=== PATIENT | female | born 1930 | race Caucasian/White ===

== ENCOUNTER → 2017-06-09 | Outpatient (CLI) | payer MEDICARE ==
[~2017-06-09] MED LIST: ALEN35 PO; ASPI81EC PO; CONEST.3 PO; CONEST.625 PO; DILT120 PO; EZET10 PO; HYDACE5 PO; NIAC500 PO; POTCHL20ER PO; RANI150 PO; RISE35 PO; SPIR25 PO
== END | disposition home or self-care (01) ==
LOC: LAB 14:17 → LAB SHORT 14:17
PROVIDERS: Obstetrics & Gynecology
DX: R87.622 Low grade squamous intraepithelial lesion on cytologic smear of vagina (LGSIL) (principal); R87.811 Vaginal high risk human papillomavirus (HPV) DNA test positive
CPT/HCPCS: 87624; 88142

== ENCOUNTER → 2017-07-06 | Outpatient (CLI) | payer MEDICARE ==
[2017-07-26 15:17] LABS: HPV 16 Negative (Negative); HPV 18 Negative (Negative); HPV OTHER HR TYPES Positive (Negative)
== END ==
LOC: LAB SHORT 16:41 → LAB 16:41
PROVIDERS: Obstetrics & Gynecology
DX: R87.811 Vaginal high risk human papillomavirus (HPV) DNA test positive (principal)
CPT/HCPCS: 87625

== ENCOUNTER → 2017-10-20 | Outpatient (CLI) | payer MEDICARE ==
[2017-10-21 15:04] LABS: Adenovirus F 40/41 Not Detected (NOT DETECT); Astrovirus Not Detected (NOT DETECT); Campylobacter Sp Not Detected (NOT DETECT); Cryptosporidium Not Detected (NOT DETECT); Cyclospora Cayetanensis Not Detected (NOT DETECT); E. Coli O157 Not Detected (NOT DETECT); Entamoeba Histolytica Not Detected (NOT DETECT); Enteroaggregative E. coli-EAEC Not Detected (NOT DETECT); Enterotoxigenic E. coli-ETEC Not Detected (NOT DETECT); Giardia Lamblia Not Detected (NOT DETECT); Norovirus GI/GII Not Detected (NOT DETECT); Plesiomonas Shigelloides Not Detected (NOT DETECT); Rotavirus A Not Detected (NOT DETECT); Salmonella Sp Not Detected (NOT DETECT); Sapovirus Not Detected (NOT DETECT); Shiga Toxin-prod E. coli-STEC Not Detected (NOT DETECT); Shigella/Enteroin E. coli-EIEC Not Detected (NOT DETECT); Vibrio Cholerae Not Detected (NOT DETECT); Vibrio Sp Not Detected (NOT DETECT); Yersinia Enterocolitica Not Detected (NOT DETECT)
[2017-10-21 18:03] LABS: Enteropathogenic E. coli-EPEC Detected (NOT DETECT)
== END ==
LOC: LAB 19:00 → LAB SHORT 19:00
PROVIDERS: Student in an Organized Health Care Education/Training Program
DX: R19.7 Diarrhea, unspecified (principal)
CPT/HCPCS: 87507

== ENCOUNTER → 2017-12-20 | Outpatient (CLI) | payer MEDICARE ==
[2017-12-22 18:07] LABS: HPV 16 Negative (Negative); HPV 18 Negative (Negative); HPV OTHER HR TYPES Positive (Negative)
== END | disposition home or self-care (01) ==
LOC: LAB SHORT 14:58 → LAB 14:58
PROVIDERS: Obstetrics & Gynecology
DX: R87.622 Low grade squamous intraepithelial lesion on cytologic smear of vagina (LGSIL) (principal); R87.811 Vaginal high risk human papillomavirus (HPV) DNA test positive
CPT/HCPCS: 87624; 88142

== ENCOUNTER → 2018-10-12 | Outpatient (CLI) | payer MEDICARE ==
[~2018-10-12] MED LIST changes: +ASPI81CH PO; -ASPI81EC PO; +ATOR40TA PO; +CALCIUM PO; +Citrucel500 MG PO; +ESTR2 PO; +HYDCOR2.5C PR; +Hair, Skin & N1 EACH PO; +IBUP400 PO; +IBUP600 PO; +Omeprazole20 M1 PO; +SENN187 PO; +SIME80CH PO; +TYLENOL ARTHRITIS PO
== END | disposition home or self-care (01) ==
LOC: LAB EV 13:50 → LAB SHORT 13:50
DX: N39.0 Urinary tract infection, site not specified (principal)
CPT/HCPCS: 87077; 87086; 87186

== ENCOUNTER 2019-03-12 00:51 | Emergency (ER) | payer MEDICARE ==
[~2019-03-12] VITALS: Ht 167.6 cm; Wt 59.0 kg
[2019-03-12 01:52] LABS: BASOPHILS ABSOLUTE AUTO 0.02 K/mm3 (0.00-0.23); BASOPHILS PERCENT AUTO 0 % (0-2); EOSINOPHILS ABSOLUTE AUTO 0.09 K/mm3 (0.00-0.68); EOSINOPHILS PERCENT AUTO 1 % (0-6); Hematocrit 36.1 % (33.0-51.0); Hemoglobin 11.5 g/dL (11.5-16.0); IMMATURE GRAN ABSOLUTE AUTO 0.03 K/mm3 (0.00-0.10); IMMATURE GRAN PERCENT AUTO 0 % (0-1); LYMPHOCYTES ABSOLUTE AUTO 1.05 K/mm3 (0.84-5.20); LYMPHOCYTES PERCENT AUTO 15 % (21-46); MONOCYTES ABSOLUTE AUTO 0.68 K/mm3 (0.16-1.47); MONOCYTES PERCENT AUTO 10 % (4-13); Mean Corpuscular HGB 28.8 pg (26.0-34.0); Mean Corpuscular HGB Conc 31.9 g/dL (31.5-36.5); Mean Corpuscular Volume 90 fL (80-100); Mean Platelet Volume 10.6 fL (9.1-12.4); NEUTROPHILS ABSOLUTE AUTO 5.31 K/mm3 (1.96-9.15); NEUTROPHILS PERCENT AUTO 74 % (41-73); Platelet Count 137 K/mm3 (150-400); RDW Coefficient Variation 13.4 % (11.7-14.2); RDW Standard Deviation 44.8 fL (35.1-46.3); White Blood Cell Count 7.18 K/mm3 (4.00-11.30)
[2019-03-12 02:06] LABS: Alanine Aminotransfer (ALT/SGP 34 U/L (12-78); Albumin, Blood 2.6 g/dL (3.4-5.0); Albumin/Globulin Ratio 0.9 (0.8-1.8); Alk Phos 48 U/L (50-136); Anion Gap 8 mmol/L (6-16); Aspartate Aminotrans (AST/SGOT 38 U/L (12-37); Bilirubin, Total 0.4 mg/dL (0.1-1.0); Blood Urea Nitrogen 33 mg/dL (8-24); Bun/Creatinine Ratio 45.5 (12.0-20.0); CO2, Blood 21 mmol/L (21-32); Calcium, Blood 8.1 mg/dL (8.5-10.1); Chloride, Blood 113 mmol/L (98-108); Creatinine, Blood 0.73 mg/dL (0.40-1.00); Glomerular Filtration Rate >60 (60-); Glucose, Blood 117 mg/dL (70-99); Potassium, Blood 3.4 mmol/L (3.5-5.5); Sodium, Blood 142 mmol/L (136-145); Total Protein, Blood 5.6 g/dL (6.4-8.2); Troponin I <0.015 ng/mL (0.000-0.040)
== END 2019-03-12 04:35 | disposition home or self-care (01) ==
LOC: ER 00:51
PROVIDERS: Emergency Medicine
DX: R07.9 Chest pain, unspecified (principal); I10 Essential (primary) hypertension; E78.5 Hyperlipidemia, unspecified; Z91.048 Other nonmedicinal substance allergy status; Z79.899 Other long term (current) drug therapy; Z79.82 Long term (current) use of aspirin
CPT/HCPCS: 36415; 71046; 80053; 84484; 85025; 93005; 93010; 96374; 99285-25; J2405

== ENCOUNTER → 2019-12-05 | Outpatient (CLI) | payer MEDICARE | END | disposition home or self-care (01) | LOC: LAB SHORT 15:08 → LAB 15:08 | DX: K21.00 Gastro-esophageal reflux disease with esophagitis, without bleeding (principal); R12 Heartburn | CPT/HCPCS: 87338 ==

== ENCOUNTER 2020-06-27 20:27 | Inpatient (IN) | payer MEDICARE ==
[~2020-06-27] VITALS: Ht 157.5 cm; Wt 56.6 kg
[~2020-06-27 20:27] MED LIST changes: +ACET325 PO; +Amoxicillin500 MG PO; +BISA10S PR; +CALTRATE 600+D1 EAC1 PO; +CRANBERRY500 M1 PO; +DOCU100 PO; +ELIQUIS5 M2 PO; +LANS30EC PO; +LORA10ER; +ONDA4ODT MM; +PEPCID20 MG PO; +Prinivil10 MG PO; +THERA-D2000 UNIT PO
[2020-06-27 21:02] LABS: Source, Urine Clean Catch
[2020-06-27 21:07] LABS: Bilirubin, Urine Neg (Neg); Blood, Urine 5+ (Neg); Glucose Qualitative, Urine Neg (Neg); Ketones, Urine Neg (Neg); Leukocyte Esterase, Urine Neg (Neg); Nitrite, Urine Neg (Neg); Protein, Urine 1+ (Neg); Urobilinogen, Urine NORM (Normal)
[2020-06-27 21:07] LABS: BASOPHILS ABSOLUTE AUTO 0.02 K/mm3 (0.00-0.23); BASOPHILS PERCENT AUTO 0 % (0-2); EOSINOPHILS ABSOLUTE AUTO 0.09 K/mm3 (0.00-0.68); EOSINOPHILS PERCENT AUTO 1 % (0-6); Hematocrit 38.1 % (33.0-51.0); Hemoglobin 12.4 g/dL (11.5-16.0); IMMATURE GRAN ABSOLUTE AUTO 0.03 K/mm3 (0.00-0.10); IMMATURE GRAN PERCENT AUTO 0 % (0-1); LYMPHOCYTES ABSOLUTE AUTO 1.33 K/mm3 (0.84-5.20); LYMPHOCYTES PERCENT AUTO 17 % (21-46); MONOCYTES ABSOLUTE AUTO 1.01 K/mm3 (0.16-1.47); MONOCYTES PERCENT AUTO 13 % (4-13); Mean Corpuscular HGB 29.4 pg (26.0-34.0); Mean Corpuscular HGB Conc 32.5 g/dL (31.5-36.5); Mean Corpuscular Volume 90 fL (80-100); Mean Platelet Volume 10.7 fL (9.1-12.4); NEUTROPHILS ABSOLUTE AUTO 5.38 K/mm3 (1.96-9.15); NEUTROPHILS PERCENT AUTO 69 % (41-73); Platelet Count 208 K/mm3 (150-400); RDW Coefficient Variation 13.7 % (11.7-14.2); RDW Standard Deviation 45.3 fL (35.1-46.3); Red Blood Cell Count 4.22 M/mm3 (3.80-5.20); White Blood Cell Count 7.86 K/mm3 (4.00-11.30)
[2020-06-27 21:12] LABS: Appearance, Urine Hazy (Clear); Color, Urine Pale Yellow (P-Yellow)
[2020-06-27 21:15] LABS: Bacteria Mod /hpf; Red Blood Cells, Urine 25-50 /hpf (0-2); Squamous Epithelial Cells Few /hpf (Few); White Blood Cells, Urine 0-2 /hpf (0-5)
[2020-06-27 21:21] LABS: Alanine Aminotransfer (ALT/SGP 16 U/L (12-78); Albumin, Blood 2.9 g/dL (3.4-5.0); Albumin/Globulin Ratio 0.6 (0.8-1.8); Alk Phos 63 U/L (50-136); Anion Gap 5 mmol/L (6-16); Aspartate Aminotrans (AST/SGOT 18 U/L (12-37); Bilirubin, Total 0.3 mg/dL (0.1-1.0); Blood Urea Nitrogen 46 mg/dL (8-24); CO2, Blood 22 mmol/L (21-32); Calcium, Blood 10.5 mg/dL (8.5-10.1); Chloride, Blood 107 mmol/L (98-108); Creatinine, Blood 1.21 mg/dL (0.40-1.00); Globulin, Blood 4.6 g/dL (2.2-4.0); Glomerular Filtration Rate 45 (60-); Glucose, Blood 124 mg/dL (70-99); Magnesium, Blood 1.7 mg/dL (1.6-2.4); Potassium, Blood 4.6 mmol/L (3.5-5.5); Sodium, Blood 134 mmol/L (136-145); Total Protein, Blood 7.5 g/dL (6.4-8.2); Troponin I <0.015 ng/mL (0.000-0.040)
--- NOTE | 2020-06-28 06:41 | NUR ---
SHIFT SUMMARY NEW ER ADMIT THIS SHIFT (50), NO ACUTE CHANGES SINCE ASSUMING CARE, A&O, XFER'D W/ST BY ASSIST BETWEEN GURNEY, BEDSIDE COMODE & BED W/MINIMAL ASSIST. SLEPT T/O THE NIGHT & SLEEPING AT THIS TIME, CALL LIGHT IN REACH, WILL CONT TO MONITOR UNTIL REPORT GIVEN TO DAY RN.
[2020-06-28 09:15] LABS: BASOPHILS ABSOLUTE AUTO 0.01 K/mm3 (0.00-0.23); BASOPHILS PERCENT AUTO 0 % (0-2); EOSINOPHILS ABSOLUTE AUTO 0.06 K/mm3 (0.00-0.68); EOSINOPHILS PERCENT AUTO 1 % (0-6); Hematocrit 33.2 % (33.0-51.0); Hemoglobin 10.9 g/dL (11.5-16.0); IMMATURE GRAN ABSOLUTE AUTO 0.03 K/mm3 (0.00-0.10); IMMATURE GRAN PERCENT AUTO 0 % (0-1); LYMPHOCYTES ABSOLUTE AUTO 1.27 K/mm3 (0.84-5.20); LYMPHOCYTES PERCENT AUTO 18 % (21-46); MONOCYTES ABSOLUTE AUTO 1.01 K/mm3 (0.16-1.47); MONOCYTES PERCENT AUTO 14 % (4-13); Mean Corpuscular HGB 29.9 pg (26.0-34.0); Mean Corpuscular HGB Conc 32.8 g/dL (31.5-36.5); Mean Corpuscular Volume 91 fL (80-100); Mean Platelet Volume 10.6 fL (9.1-12.4); NEUTROPHILS ABSOLUTE AUTO 4.79 K/mm3 (1.96-9.15); NEUTROPHILS PERCENT AUTO 67 % (41-73); Platelet Count 175 K/mm3 (150-400); RDW Coefficient Variation 13.7 % (11.7-14.2); Red Blood Cell Count 3.65 M/mm3 (3.80-5.20); White Blood Cell Count 7.17 K/mm3 (4.00-11.30)
[2020-06-28 09:34] LABS: Albumin, Blood 2.4 g/dL (3.4-5.0); Albumin/Globulin Ratio 0.6 (0.8-1.8); Bilirubin, Total 0.3 mg/dL (0.1-1.0); Bun/Creatinine Ratio 33.3 (12.0-20.0); Calcium, Blood 9.5 mg/dL (8.5-10.1); Creatinine, Blood 1.02 mg/dL (0.40-1.00); Potassium, Blood 4.3 mmol/L (3.5-5.5); Total Protein, Blood 6.4 g/dL (6.4-8.2)
--- NOTE | 2020-06-28 16:38 | NUR ---
PT AAOX4. PLEASANT AND COOPERATIVE WITH CARE. 1 ASSIST TO BSC. IV L AC SALINE LOCKED AFTER 1L NS. ENCOURAGED ORAL FLUIDS THROUGHOUD SHIFT. EDUCATED ON ADEQUATE HYDRATION. PT HAS LIGHT APPETITE, REPORTS THIS IS BASELINE. BM TODAY, ADEQUATE URINE OUTPUT. SKIN INTACT. PT REPORTS CHRONIC BL ARTHRITIC HAND PAIN THAT IS WELL CONTROLLED WITH TYLENOL. RECENT RECTAL AND VAGINAL PROLAPSE PAIN WELL TOLERATED. RR ARE EVEN AND UNLABORED RA. LCTA ALL BUTLER. SON PRESENT AND SUPPORTIVE DURING VH. PT/SON HAVE NO QUESTIONS OR CONCERNS AT THIS TIME. WILL CONTINUE TO MONITOR UNTIL REPORT TO NOC RN
--- NOTE | 2020-06-29 03:18 | NUR ---
SHIFT SUMMARY RECEIVED IV ANTIBIOTICS ORDERED - SEE MAR FOR DETAILS. HAS BEEN RESTING QUIETLY WITH FEW INTERRUPTIONS SINCE HS. ASSISTED TO BEDSIDE COMMODE A FEW TIMES TO VOID. NO COMPLAINTS VOICED. CALL LIGHT IN REACH
[2020-06-29] MEDS ORDERED: LEVFLO500 PO (13:28)
[2020-06-29] MEDS ORDERED: VISBIOME 112.51 EACH PO (13:29)
[2020-06-29] MEDS ORDERED: FLUC150A PO (13:30)
--- NOTE | 2020-06-29 15:36 | NUR ---
SHIFT SUMMARY PT IS A&O, PLEASANT AND CO-OP. UP TO BTHRM WITH 1P SBA USING FWW. VSS; SEE CHART. PT UP TO CHAIR FOR MEALS. DR ADAMS IN TO SEE PT, DISCUSSED PLAN OF CARE. D/C ORDERS PLACED. MEDS FAXED TO [facility] PER PT REQUEST. PT'S SON NOTIFIED OF D/C. HERE TO TAKE PT HOME. D/C INSTRUCTIONS DISCUSSED WITH PT AND SON. VERBALIZED UNDERSTANDING. PT ASSISTED OUT TO SON'S CAR VIA W/C BY PORTRAIT ARTIST.
== END 2020-06-29 15:11 | disposition home or self-care (01) | DRG 683 ==
LOC: ER 20:27 → MEDS 20:28
PROVIDERS: Emergency Medicine; ADMIT Internal Medicine
DX: N17.9 Acute kidney failure, unspecified (principal); I48.20 Chronic atrial fibrillation, unspecified; E87.1 Hypo-osmolality and hyponatremia; E86.0 Dehydration; E83.52 Hypercalcemia; Z66 Do not resuscitate; I12.9 Hypertensive chronic kidney disease with stage 1 through stage 4 chronic kidney disease, or unspecified chronic kidney disease; N18.30 Chronic kidney disease, stage 3 unspecified; E78.5 Hyperlipidemia, unspecified; Z79.899 Other long term (current) drug therapy; Z88.1 Allergy status to other antibiotic agents; Z88.8 Allergy status to other drugs, medicaments and biological substances; Z90.710 Acquired absence of both cervix and uterus; Z98.890 Other specified postprocedural states; Z79.01 Long term (current) use of anticoagulants; Z91.09 Other allergy status, other than to drugs and biological substances; Z90.722 Acquired absence of ovaries, bilateral; Z90.12 Acquired absence of left breast and nipple
CPT/HCPCS: 36415; 71045; 80053; 81001; 83605; 83735; 83880; 84145; 84484; 85025; 87040; 87086; 93005; 93010; 96365; 96367; 97161; 97165; 97530; 97535; 99285-25; A9270; G0378; J0456; J0696; J7030; J7050; J7120; P9612

== ENCOUNTER → 2021-01-01 | Outpatient (CLI) | payer MEDICARE ==
[~2021-01-01] MED LIST changes: +FLUC150A PO; +LEVFLO500 PO; +VISBIOME 112.51 EACH PO
== END | disposition home or self-care (01) ==
LOC: LAB SHORT 19:23
DX: N30.00 Acute cystitis without hematuria (principal)
CPT/HCPCS: 87086